=== PATIENT | female | born 1990 | race Two or more races ===

== ENCOUNTER 2023-06-21 13:15 | Emergency (ER) | payer BC ==
[2023-06-21 13:20] VITALS: BP 124/82; PULSE 89; RESP 19; TEMP 98.6; BMI 32.5
== END 2023-06-21 15:48 | disposition home or self-care (01) ==
LOC: JERFT 13:15
DX: O46.90 Antepartum hemorrhage, unspecified, unspecified trimester (principal); Z3A.01 Less than 8 weeks gestation of pregnancy
CPT/HCPCS: 36415; 76817-TC; 84702; 99284-25